=== PATIENT | male | born 1975 | race Caucasian/White ===

== ENCOUNTER 2016-09-28 02:51 | Emergency (ER) | payer OTHER ==
[~2016-09-28] VITALS: Ht 167.6 cm; Wt 68.2 kg
[2016-09-28 03:09] VITALS: BP 148/93; PULSE 94; RESP 18; O2SAT 96
--- NOTE | 2016-09-28 03:09 | ED.REPORT ---
HPI-General Illness Date of Service Sep 28, 2016 ED Provider: Jt Gutierrez MD Patient is a 41 year old male with a history of IV polysubstance abuse who presents to the ED desiring to detox from heroin after last using 4-5 hours prior to arrival. Patient presents to the ED tonight requesting Suboxone. The patient has an assessment at [facility] to start outpatient Suboxone treatment on October 07. Patient previously tried Suboxone at [facility], a 2 week taper, but he has not used it long-term. Patient has also previously been in inpatient treatment at [facility]. The patient states that he is mostly uses IV heroin, but that he sometimes used IV methamphetamine. He lasted used methamphetamine yesterday Patient denies any withdrawal symptoms at this time. He denies a fever, drug injection abscesses, or a history of endocarditis. Patient is currently homeless. Nursing Notes Stated Complaint: WITHDRAWALS Nursing Notes Reviewed: Yes Allergies: Coded Allergies: ranitidine (Verified Allergy, Intermediate, Rash, swelling in hands, ) Penicillins (Verified Allergy, Unknown, 07/02/09) Potassium Clavulanate (Verified Allergy, Unknown, 10/11/11) amoxicillin trihydrate (Verified Allergy, Unknown, 10/11/11) morphine (Verified Allergy, Unknown, 10/11/11) Scheduled Buprenorphine HCl/Naloxone HCl (Suboxone 8 mg-2 mg Sl Film) 1 Each Film 1 EACH SL BID General Time Seen by MD: 03:02 Chief Complaint Other (heroin withdrawal) Hx Obtained From: Patient Arrived By: Walk-in Sudden in Onset?: No Onset Occurred: 5 - 8 hours ago Symptom Duration: Since onset Severity: Current: No pain currently Severity: Maximum: No pain Recent Healthcare: No recent doctor visit, No recent hospitalization Similar Sx Previous: Yes Past Medical History Past Medical History IV drug abuse Past Surgical History denies Smoking History Current Every Day Smoker Social History Alcohol Use: Denies alcohol use Drug Use: In recovery, IV drugs, Meth Other Social History: , Local resident, Homeless Ambulatory Status Independent Review of Systems denies withdrawal symptoms Full Review of Systems Constitutional: Denies: Chills, Fever Skin: Denies Rash (denies abscesses), Denies Swelling Complete sys rev & neg: except as marked. Physical Exam Vital Signs Vital Signs Date Time Temp Pulse Resp B/P Pulse Ox O2 Delivery O2 Flow Rate FiO2 09/28/16 04:05 36.0 94 18 148/93 96 Room Air 09/28/16 03:09 36.0 94 18 148/93 96 Room Air Initial VS: Reviewed, Vital signs abnormal Head / Eyes: Atraumatic, Normocephalic, PERRL ENT: Conjunctiva normal, No scleral icterus Neck: Supple, Full range of motion Extremities: Vascular intact, Neuro intact Neurologic: Alert, Oriented, Nonfocal Psychiatric: Mood/affect normal, Behavior normal, Normal thought content General/Constitutional: Awake, Alert, No acute distress Respiratory / Chest: Breath sounds NL, Breath sounds = bilat, No respiratory distress, No rales, No rhonchi, No wheezing Cardiovascular: Heart rate NL, Regular rhythm, No murmurs Skin: Warm, Dry Rash / Lesion Notes: no abscesses Rash / Lesion Pattern: Positive: Track khan Re-Eval/Medical Decision Med Decision/Clinical Course 41-year-old male who has an upcoming appointment for Suboxone at [facility], but would like to get started on Suboxone now with a prescription to bridge until that appointment. Suboxone 8/to film or strip, 1 sublingual twice a day, #20 prescription written. Source of Hx: Old records Time of Eval: 03:19 Re-Evaluation/Progress Note: Patient understands and agrees with the plan to be discharged home. He will be given a Suboxone taper to use until Oct 07. Discharge instructions and follow-up discussed. All questions were addressed. Return to the ED warnings given. Counseled Regarding: Diagnosis, Need for follow-up, When/why to return to ED Discharge & Departure Primary Impression: Opioid dependence with withdrawal Disposition: Home Discharge Condition All VS Reviewed: Yes Condition: Stable Patient Instructions: Buprenorphine/Naloxone (By mouth) Additional Instructions: Wait a full 24 hours after your last dose of heroin to start Suboxone 8/2 film or tablet, one dissolved under the tongue twice daily, #20 dispensed. Keep your appointment at [facility] to get started in an outpatient Suboxone program. Do not use heroin or meth. Scribe Attestation Portions of this note were transcribed by Lola Olvera. I, Dr. Gutierrez, personally performed the history, physical exam and medical decision-making; I reviewed and confirmed the accuracy of the information in the transcribed note. Signed by: Tiffanie Santacruz, 09/28/2016 0333 Jt Gutierrez MD Sep 28, 2016 03:09 Lola Olvera Sep 28, 2016 03:20
[2016-09-28] MEDS ORDERED: BUPR1FIL3 SL (03:30)
[2016-09-28 04:05] VITALS: BP 148/93; PULSE 94; RESP 18; O2SAT 96
== END 2016-09-28 03:40 | disposition home or self-care (01) ==
LOC: SED 02:51
DX: F11.23 Opioid dependence with withdrawal (principal); F17.200 Nicotine dependence, unspecified, uncomplicated; Z59.0 Homelessness; Z88.8 Allergy status to other drugs, medicaments and biological substances; Z88.0 Allergy status to penicillin; Z88.1 Allergy status to other antibiotic agents; Z88.5 Allergy status to narcotic agent

== ENCOUNTER 2016-10-13 09:33 | Emergency (ER) | payer OTHER ==
[~2016-10-13] VITALS: Ht 167.6 cm; Wt 68.2 kg
[~2016-10-13 09:33] MED LIST: BUPR1FIL3 SL
[2016-10-13 09:43] VITALS: BP 138/96; PULSE 83; RESP 18; O2SAT 100
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
[2016-10-13] MEDS ORDERED: 0.9% Sodium Chloride 1,000 ML IV ONE (10:02)
[2016-10-13] MEDS ORDERED: Ondansetron 2 mg/mL 2 mL Inj IVPUSH ONE (10:05)
[2016-10-13] MEDS ORDERED: TdaP Vaccine 0.5 mL Inj IM ONE (10:05)
[2016-10-13] MEDS: HYDROmorphone 0.5 mg/0.5 mL iSecure Syringe IVPUSH PRN ×2 (10:15→11:42)
[2016-10-13 10:37] LABS: BASOPHILS % (AUTO) 0.3 % (0-3); EOSINOPHILS % (AUTO) 0.7 % (0-5); MONOCYTES % (AUTO) 12.2 % (4-12); Mean Corpuscular Hemoglobin 28.4 pg (27.0-35.0); Mean Corpuscular Volume 84.6 fL (81-100); NEUTROPHILS % (AUTO) 71.4 % (40-74); Platelet Count 323 bil/L (150-400)
[2016-10-13 10:50] LABS: INR 0.92 ratio
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
--- NOTE | 2016-10-13 11:18 | DRSVH ---
PROCEDURE: X-RAY PELVIS, ONE OR TWO VIEWS ([id number]) INDICATIONS: trauma TECHNIQUE: 1 view(s) of the pelvis acquired. COMPARISON: None. FINDINGS: Bones: No fractures or dislocations. No suspicious bony lesions. Soft tissues: Visualized bowel gas pattern is normal. No suspicious soft tissue calcifications. IMPRESSION: No fracture. No osseous lesion. If symptoms and/or clinical suspicion for pathology pers ists, further assessment with repeat radiographs or advanced imaging (e.g. CT, MRI or bone scan) may be helpful for further assessment. Dictated by: Mally Martell MD, PhD on 10/13/2016 at 11:16 Approved by: Mally Martell MD, PhD on 10/13/2016 at 11:16
[2016-10-13] MEDS ORDERED: HYDR-4003 PO (11:31)
[2016-10-13] MEDS ORDERED: CEPH-512 PO (11:31)
[2016-10-13 12:59] VITALS: BP 122/71; PULSE 67; RESP 16; O2SAT 98
== END 2016-10-13 13:00 | disposition home or self-care (01) ==
LOC: SED 09:33
DX: S02.0XXA Fracture of vault of skull, initial encounter for closed fracture (principal); S01.111A Laceration without foreign body of right eyelid and periocular area, initial encounter; S01.01XA Laceration without foreign body of scalp, initial encounter; V18.4XXA Pedal cycle driver injured in noncollision transport accident in traffic accident, initial encounter; Y93.55 Activity, bike riding; Y99.8 Other external cause status; Y92.410 Unspecified street and highway as the place of occurrence of the external cause; F17.200 Nicotine dependence, unspecified, uncomplicated; F11.10 Opioid abuse, uncomplicated; Z59.0 Homelessness; Z23 Encounter for immunization; Z88.0 Allergy status to penicillin; Z88.5 Allergy status to narcotic agent; Z88.8 Allergy status to other drugs, medicaments and biological substances
CPT/HCPCS: 12001; 12053; 36415; 70450; 70486; 71010; 72125; 72170; 80053; 85025; 85610; 86850; 90471; 90715; 96361; 96374; 96375; 96376; 99285; G0480; J1170; J2405; J7030

== ENCOUNTER 2016-10-23 12:12 | Emergency (ER) | payer OTHER ==
[~2016-10-23] VITALS: Ht 167.6 cm; Wt 68.2 kg
[~2016-10-23 12:12] MED LIST changes: +CEPH-512 PO; +HYDR-4003 PO
[2016-10-23 12:15] VITALS: BP 143/90; PULSE 102; RESP 16; O2SAT 98
== END 2016-10-23 12:34 | disposition home or self-care (01) ==
LOC: SED 12:12
DX: Z48.02 Encounter for removal of sutures (principal)